=== PATIENT | female | born 1965 | race Asian ===

== ENCOUNTER → 2016-12-31 | Outpatient (CLI) | payer OTHER ==
[~2016-12-31] MED LIST: ASPI-496 PO; CARV6.252 PO; ENAL2.5T PO; INSU100I11 SC; INSU100V8 SQ; SIMV20TA3 PO
[2016-12-31 08:30] LABS: ASPARTATE AMINO TRANSFERASE 23 U/L (15-37); BLOOD UREA NITROGEN 18 mg/dL (7-18)
== END | disposition home or self-care (01) ==
LOC: LAB 07:12
PROVIDERS: ATTEND Family Medicine
DX: E11.9 Type 2 diabetes mellitus without complications (principal); E78.2 Mixed hyperlipidemia
CPT/HCPCS: 36415; 80053; 80061; 82043; 83036

== ENCOUNTER → 2017-01-29 | Outpatient (CLI) | payer OTHER | END | disposition home or self-care (01) | LOC: CFH 12:37 | PROVIDERS: ATTEND Family Medicine | DX: K57.90 Diverticulosis of intestine, part unspecified, without perforation or abscess without bleeding (principal); Z90.710 Acquired absence of both cervix and uterus | CPT/HCPCS: 74177; 82565 ==

== ENCOUNTER → 2017-02-03 | Outpatient (CLI) | payer OTHER | END | disposition home or self-care (01) | LOC: RAD 10:40 | PROVIDERS: ATTEND Family Medicine | DX: R05 Cough (principal) | CPT/HCPCS: 71020 ==

== ENCOUNTER → 2018-05-17 | Outpatient (CLI) | payer OTHER | END | disposition home or self-care (01) | LOC: RAD 09:26 | PROVIDERS: ATTEND Internal Medicine Hematology & Oncology | DX: R76.12 Nonspecific reaction to cell mediated immunity measurement of gamma interferon antigen response without active tuberculosis (principal) ==

== ENCOUNTER → 2018-07-02 | Outpatient (CLI) | payer OTHER ==
[2018-07-02 08:25] LABS: ALANINE AMINOTRANSFERASE 27 U/L (12-78); ALBUMIN 3.4 g/dL (3.4-5.0); ANION GAP 12 mmol/L (5-15); CALCIUM 8.8 mg/dL (8.5-10.1); CHLORIDE 105 mmol/L (98-107); CHOLESTEROL, TOTAL 238 mg/dL (140-239)
[2018-07-02 08:28] LABS: ALKALINE PHOSPHATASE 119 U/L (45-117); CHOL/HDL RATIO 4.7; HDL CHOL % 21 % (28-40); HDL CHOLESTEROL (DIRECT) 51 mg/dL (40-60); LDL CHOLESTEROL,CALCULATED 155 mg/dL (54-169); TOTAL PROTEIN 7.5 g/dL (6.4-8.2); TRIGLYCERIDES 162 mg/dL (50-200); VLDL CHOLESTEROL 32 mg/dL (0-25)
[2018-07-02 08:29] LABS: HEMOGLOBIN A1C 13.5 % (4.2-6.3)
== END | disposition home or self-care (01) ==
LOC: LAB 07:44
PROVIDERS: ATTEND Family Medicine
DX: E10.9 Type 1 diabetes mellitus without complications (principal); E78.2 Mixed hyperlipidemia
CPT/HCPCS: 36415; 80053; 80061; 82043; 83036

== ENCOUNTER 2019-07-16 22:03 | Emergency (ER) | payer OTHER ==
[~2019-07-16] VITALS: Ht 157.5 cm; Wt 75.8 kg
[2019-07-16 22:05] VITALS: BP 165/90
[2019-07-16] MEDS ORDERED: AMOXICILLIN 500 MG CAPSULE PO STA (22:34)
[2019-07-16] MEDS ORDERED: AMOXICILLIN 500 MG CAPSULE ONE (22:42)
== END 2019-07-16 23:09 | disposition home or self-care (01) ==
LOC: ED 23:03
DX: K08.89 Other specified disorders of teeth and supporting structures (principal); E11.65 Type 2 diabetes mellitus with hyperglycemia
CPT/HCPCS: 99283

== ENCOUNTER → 2019-07-25 | Outpatient (CLI) | payer OTHER ==
[2019-07-25 10:26] LABS: ALBUMIN 4.4 g/dL (3.4-5.0); ANION GAP 9 mmol/L (5-15); CALCIUM 9.7 mg/dL (8.5-10.1); CHLORIDE 98 mmol/L (98-107)
[2019-07-25 10:30] LABS: ALANINE AMINOTRANSFERASE 42 U/L (12-78); ALKALINE PHOSPHATASE 149 U/L (45-117); BILIRUBIN,TOTAL 1.1 mg/dL (0.2-1.0); CHOL/HDL RATIO 4.7; CHOLESTEROL, TOTAL 284 mg/dL (140-239); CREATININE 1.04 mg/dL (0.55-1.02); HDL CHOL % 21 % (28-40); HDL CHOLESTEROL (DIRECT) 60 mg/dL (40-60); LDL CHOLESTEROL,CALCULATED 179 mg/dL (54-169); TOTAL PROTEIN 9.7 g/dL (6.4-8.2); TRIGLYCERIDES 224 mg/dL (50-200); VLDL CHOLESTEROL 45 mg/dL (0-25)
[2019-07-25 12:02] LABS: HEMOGLOBIN A1C 12.5 % (4.2-6.3)
== END | disposition home or self-care (01) ==
LOC: LAB 09:55
PROVIDERS: ATTEND Family Medicine
DX: E10.9 Type 1 diabetes mellitus without complications (principal); E78.2 Mixed hyperlipidemia
CPT/HCPCS: 36415; 80053; 80061; 82043; 83036

== ENCOUNTER → 2020-01-17 | Outpatient (CLI) | payer OTHER ==
[~2020-01-17] MED LIST changes: +SIMV20TA19 PO; -SIMV20TA3 PO
[2020-01-17 08:41] LABS: ALANINE AMINOTRANSFERASE 35 U/L (12-78); ALBUMIN 3.9 g/dL (3.4-5.0); ANION GAP 9 mmol/L (5-15); CALCIUM 9.4 mg/dL (8.5-10.1); CHLORIDE 102 mmol/L (98-107); CREATININE 0.88 mg/dL (0.55-1.02)
[2020-01-17 08:43] LABS: ALKALINE PHOSPHATASE 122 U/L (45-117); TOTAL PROTEIN 8.2 g/dL (6.4-8.2)
== END | disposition home or self-care (01) ==
LOC: LAB 08:02
PROVIDERS: ATTEND Family Medicine
DX: E10.9 Type 1 diabetes mellitus without complications (principal)
CPT/HCPCS: 36415; 80053; 82043; 83036

== ENCOUNTER 2021-01-03 12:03 | Emergency (ER) | payer OTHER ==
[~2021-01-03] VITALS: Ht 154.9 cm; Wt 65.0 kg
[~2021-01-03 12:03] MED LIST changes: -ENAL2.5T PO; +ENAL2.5T8 PO
[2021-01-03 12:43] VITALS: BP 133/88
--- NOTE | 2021-01-03 12:43 | NUR ---
MECHANICAL SYSTEM TECHNICIAN: PT AMBULATORY TO ROOM FROM LOBBY WITH STEADY GAIT AT THIS TIME WITH PRIMARY RN HARMONY
--- NOTE | 2021-01-03 12:45 | NUR ---
Pt arrived with complaints of a "boil" between her butt and vagina. Pt A&O x4, VSS, connected to BP and O2 monitors. Pt states that she is also a diabetic but is "hardheadded" and isn't always compliant with her meds. RAYRAY
--- NOTE | 2021-01-03 13:14 | NUR ---
BREAK RN: THIS RN AT BEDSIDE DURING PERINEAL EXAM.
[2021-01-03] MEDS ORDERED: LIDOCAINE-MPF 1%, 5ML ONE (13:17)
--- NOTE | 2021-01-03 13:27 | NUR ---
BREAK RN: [place] PULLED FOR ERP ADMIN. I&D SET UP PER ERP REQUEST.
--- NOTE | 2021-01-03 14:17 | NUR ---
REPORT GIVEN TO SOLANGE MOON RN.
== END 2021-01-03 14:27 | disposition home or self-care (01) ==
LOC: ED 14:00
DX: L02.215 Cutaneous abscess of perineum (principal); L02.31 Cutaneous abscess of buttock; I10 Essential (primary) hypertension; E11.9 Type 2 diabetes mellitus without complications
CPT/HCPCS: 46050; 99284

== ENCOUNTER 2021-03-11 08:01 | Emergency (ER) | payer OTHER ==
[~2021-03-11] VITALS: Ht 154.9 cm; Wt 62.8 kg
--- NOTE | 2021-03-11 08:48 | NUR ---
AMBULATED FROM LOBBY TO ROOM
--- NOTE | 2021-03-11 08:57 | NUR ---
PT C/O RUQ PAIN THAT RADIATES TO THE BACK WITH MODERATE PAIN SINCE 0600 THIS AM. PT HAS HAD PAIN SINCE LAST WEEK WEDNESDAY. THE PAIN WOULD COME WHEN EATING THEN IT WOULD GO AWAY. NOW PAIN IS CONSTANT. MIDDLE BACK PAIN HAS BEEN THERE FOR 3 WEEKS & MILD PAIN.
--- NOTE | 2021-03-11 09:06 | NUR ---
PROVIDER AT BEDSIDE TO DO EVALUATION.
[2021-03-11 09:07] LABS: MICROSCOPIC NOT IND
[2021-03-11] MEDS ORDERED: MORPHINE SULFATE 4 MG/ML, 1ML IVPush PRN (09:30)
[2021-03-11] MEDS ORDERED: MORPHINE SULFATE 4 MG/ML, 1ML ONE (09:33)
[2021-03-11] MEDS ORDERED: ONDANSETRON 2MG/ML, 2ML ONE (09:33)
--- NOTE | 2021-03-11 09:36 | NUR ---
ULTRASOUND AT BEDSIDE PT MEDICATED FOR PAIN AND FLUIDS STARTED. VSS.
[2021-03-11 09:44] LABS: BASOPHILS % (AUTO) 1 % (0-1); EOSINOPHILS % (AUTO) 2 % (1-7); LYMPHOCYTES % (AUTO) 34 % (22-44); MEAN CORPUSCULAR HEMOGLOBIN 30.2 pg (27.0-34.8); MEAN CORPUSCULAR HGB CONC 34.6 g/dL (32.4-35.8); MEAN PLATELET VOLUME 7.3 fL (7.4-10.4); MONOCYTES % (AUTO) 5 % (2-9); NEUTROPHILS % (AUTO) 59 % (42-75); PLATELET COUNT 267 x10^3/uL (130-400); RED BLOOD COUNT 4.77 x10^6/uL (3.82-5.3)
[2021-03-11 09:58] LABS: ALANINE AMINOTRANSFERASE 42 U/L (12-78); ALBUMIN 3.3 g/dL (3.4-5.0); ANION GAP 7 mmol/L (5-15); CALCIUM 8.6 mg/dL (8.5-10.1); CHLORIDE 108 mmol/L (98-107); CREATININE 0.71 mg/dL (0.55-1.02)
[2021-03-11 10:00] LABS: ALKALINE PHOSPHATASE 101 U/L (45-117); BILIRUBIN,TOTAL 0.9 mg/dL (0.2-1.0); TOTAL PROTEIN 7.4 g/dL (6.4-8.2)
[2021-03-11] MEDS ORDERED: ONDANSETRON 2MG/ML, 2ML IVPush ONE (10:00)
[2021-03-11] MEDS ORDERED: SODIUM CHLORIDE 0.9% 1,000ML IVBOLUS ONE (10:00)
--- NOTE | 2021-03-11 10:23 | NUR ---
PT RESPONDED WELL TO PAIN MEDICATION PAIN IS DOWN SIGNIFICATNLY. VSS, BED RAILS UPX2 CALL REMOTE WITHIN REACH
[2021-03-11 11:14] VITALS: BP 145/78
--- NOTE | 2021-03-11 11:16 | NUR ---
PT STATES NO PAIN AND JUST HEAVY RIGHT NOW PROVIDER AT BEDSIDE TO DISCUSS DISCHARGE PLAN.
--- NOTE | 2021-03-11 11:44 | NUR ---
Patient/Caregiver given discharge instructions and they have confirmed that they understand the instructions. Patient ambulatory with steady gait.
== END 2021-03-11 11:45 | disposition home or self-care (01) ==
LOC: ED 08:13
DX: K29.00 Acute gastritis without bleeding (principal); I10 Essential (primary) hypertension; Z90.710 Acquired absence of both cervix and uterus
CPT/HCPCS: 36415; 71045; 76700; 80053; 81003; 83690; 85025; 96361; 96374; 96375; 99285; J2270; J2405; J7030

== ENCOUNTER → 2021-04-04 | Outpatient (CLI) | payer OTHER ==
[~2021-04-04] MED LIST changes: +SINCALIDE (KINEVAC) 5 MCG ONE
== END | disposition home or self-care (01) ==
LOC: RAD 10:12
PROVIDERS: ATTEND Family Medicine
DX: R10.11 Right upper quadrant pain (principal)
CPT/HCPCS: 78227; A9537; J2805

== ENCOUNTER 2021-04-08 14:02 | Emergency (ER) | payer OTHER ==
[~2021-04-08] VITALS: Ht 154.9 cm; Wt 64.0 kg
[~2021-04-08 14:02] MED LIST changes: -SINCALIDE (KINEVAC) 5 MCG ONE
--- NOTE | 2021-04-08 14:42 | NUR ---
PATIENT TO ROOM FROM LOBBY.
[2021-04-08] MEDS ORDERED: MORPHINE SULFATE 4 MG/ML, 1ML ONE (15:23)
[2021-04-08] MEDS ORDERED: ONDANSETRON 2MG/ML, 2ML ONE (15:23)
[2021-04-08] MEDS ORDERED: ONDANSETRON 2MG/ML, 2ML IVPush ONE (15:30)
[2021-04-08] MEDS ORDERED: SODIUM CHLORIDE FLUSH 10ML SYR IVF ONE (15:30)
[2021-04-08] MEDS ORDERED: MORPHINE SULFATE 4 MG/ML, 1ML IVPush PRN (15:30)
[2021-04-08 15:41] LABS: BASOPHILS % (AUTO) 0 % (0-1); EOSINOPHILS % (AUTO) 1 % (1-7); LYMPHOCYTES % (AUTO) 42 % (22-44); MEAN CORPUSCULAR HEMOGLOBIN 30.3 pg (27.0-34.8); MEAN CORPUSCULAR HGB CONC 34.7 g/dL (32.4-35.8); MEAN PLATELET VOLUME 6.8 fL (7.4-10.4); MONOCYTES % (AUTO) 6 % (2-9); NEUTROPHILS % (AUTO) 50 % (42-75); PLATELET COUNT 293 x10^3/uL (130-400); RED BLOOD COUNT 4.71 x10^6/uL (3.82-5.3); RED CELL DISTRIBUTION WIDTH 12.9 % (9.6-15.2)
[2021-04-08 15:54] LABS: ALANINE AMINOTRANSFERASE 45 U/L (12-78); ALBUMIN 3.4 g/dL (3.4-5.0); ANION GAP 4 mmol/L (5-15); CALCIUM 9.3 mg/dL (8.5-10.1); CHLORIDE 109 mmol/L (98-107); CREATININE 0.65 mg/dL (0.55-1.02)
[2021-04-08 15:55] LABS: ALKALINE PHOSPHATASE 104 U/L (45-117); BILIRUBIN,TOTAL 1.2 mg/dL (0.2-1.0); TOTAL PROTEIN 7.5 g/dL (6.4-8.2)
--- NOTE | 2021-04-08 15:56 | NUR ---
PT MEDICATED FOR PAIN PER ORDERS. PT REMAINS ON MONITORS, VSS. AT BEDSIDE. AWAITING ALL LAB RESULTS. CONT TO MONITOR.
[2021-04-08] MEDS ORDERED: LORazepam 1MG TABLET PO ONE (16:00)
--- NOTE | 2021-04-08 17:00 | NUR ---
PT RESTING IN BED, NO DISTRESS. PT STATES PAIN DECREASED, PAIN MEDICATIONS EFFECTIVE. VSS. CONT TO MONITOR.
--- NOTE | 2021-04-08 18:30 | NUR ---
PT D/C'D PER ERMD ORDERS, PT STATES PAIN STILL WELL CONTROLLED. PT VERBALIZED UNDERSTANDING OF D/C ORDERS. PT HAS STEADY GAIT UPON D/C.
[2021-04-08 19:07] VITALS: BP 142/87
== END 2021-04-08 19:09 | disposition home or self-care (01) ==
LOC: ED 14:48
DX: K80.50 Calculus of bile duct without cholangitis or cholecystitis without obstruction (principal); I10 Essential (primary) hypertension; E11.65 Type 2 diabetes mellitus with hyperglycemia; E78.5 Hyperlipidemia, unspecified; Z90.710 Acquired absence of both cervix and uterus
CPT/HCPCS: 36415; 80053; 83690; 85025; 96374; 96375; 99285; J2270; J2405

== ENCOUNTER 2021-04-20 06:48 | Day surgery (SDC) | payer OTHER ==
[2021-04-18 12:07] LABS: ALANINE AMINOTRANSFERASE 35 U/L (12-78); ALBUMIN 3.6 g/dL (3.4-5.0); ANION GAP 8 mmol/L (5-15); CALCIUM 9.1 mg/dL (8.5-10.1); CHLORIDE 105 mmol/L (98-107); CREATININE 0.72 mg/dL (0.55-1.02)
[2021-04-18 12:09] LABS: ALKALINE PHOSPHATASE 97 U/L (45-117); BILIRUBIN,TOTAL 0.8 mg/dL (0.2-1.0); TOTAL PROTEIN 7.7 g/dL (6.4-8.2)
[~2021-04-20] VITALS: Ht 154.9 cm; Wt 62.3 kg
[~2021-04-20 06:48] MED LIST changes: +DULA1.5P SC; +ENAL5TAB10 PO; +GLIM2TAB7 PO; +OMEP40CA8 PO; +OXYC1TAB14 PO
[2021-04-20 07:09] VITALS: BP 122/75
[2021-04-20] MEDS ORDERED: EPINEPHRINE 1 MG/ML, 1ML ONE (07:14)
[2021-04-20] MEDS ORDERED: BUPIVACAINE/PF 0.5% ONE (07:14)
[2021-04-20] MEDS ORDERED: MIDAZOLAM 1 MG/ML, 2ML ONE (08:05)
[2021-04-20] MEDS ORDERED: FENTANYL PF 100 MCG/2ML ONE ×2 (08:05→10:22)
[2021-04-20] MEDS ORDERED: PROMETHAZINE 25 MG/ML, 1ML IVPush PRN (08:30)
[2021-04-20] MEDS ORDERED: HYDROcodone/APAP 7.5-325MG/15ML UDC PO PRN (08:30)
[2021-04-20] MEDS ORDERED: OXYcodone 5 MG/5 ML ORAL.SOL UDC PO PRN (08:30)
[2021-04-20] MEDS ORDERED: ONDANSETRON 2MG/ML, 2ML IVPush PRN (08:30)
[2021-04-20] MEDS ORDERED: MEPERIDINE/PF 25MG/0.5ML IVPush PRN (08:30)
[2021-04-20] MEDS ORDERED: HYDROmorphone 1 MG/ML, 1ML INJ IVPush PRN (08:30)
[2021-04-20] MEDS ORDERED: LIDOCAINE 1%, 20ML ONE (09:13)
[2021-04-20] MEDS ORDERED: DEXAMETHASONE 4 MG/ML, 1ML ONE (09:13)
[2021-04-20] MEDS ORDERED: BUPIVACAINE/PF-EPI 0.5% 1:200K IM ONE (09:42)
[2021-04-20] MEDS ORDERED: NEOSTIGMINE 1 MG/ML, 10ML ONE (10:02)
[2021-04-20] MEDS ORDERED: ROCURONIUM 10MG/ML,5ML ONE (10:02)
[2021-04-20] MEDS ORDERED: CEFAZOLIN 1,000 MG ONE (10:02)
[2021-04-20] MEDS ORDERED: PROPOFOL 10 MG/ML, 20ML ONE (10:02)
[2021-04-20] MEDS ORDERED: ONDANSETRON 2MG/ML, 2ML ONE (10:02)
[2021-04-20] MEDS ORDERED: GLYCOPYRROLATE 0.2MG/1ML, 5ML ONE (10:02)
[2021-04-20] MEDS ORDERED: SUCCINYLCHOLINE 20 MG/ML, 10ML ONE (10:02)
[2021-04-20] MEDS ORDERED: ACETAMINOPHEN 650 MG/20.3 ML UDC ONE (10:22)
[2021-04-20] MEDS ORDERED: OXYcodone 5 MG/5 ML ORAL.SOL UDC ONE (10:22)
[2021-04-20] MEDS: FENTANYL PF 100 MCG/2ML IV PRN ×2 (10:25→10:40)
[2021-04-20] MEDS ORDERED: OXYC-302 PO (10:31)
[2021-04-20] MEDS ORDERED: ONDA4TAB7 PO (10:36)
[2021-04-20] MEDS ORDERED: OXYC1TAB14 PO (10:38)
[2021-04-20] MEDS ORDERED: ACETAMINOPHEN 325 MG TABLET PO PRN (11:00)
== END 2021-04-20 11:50 | disposition home or self-care (01) ==
LOC: OR 06:48 → 4NE 06:51 → OR 11:50
PROVIDERS: ATTEND Surgery
DX: K81.1 Chronic cholecystitis (principal); K82.8 Other specified diseases of gallbladder; I10 Essential (primary) hypertension; E11.9 Type 2 diabetes mellitus without complications; Z79.899 Other long term (current) drug therapy
CPT/HCPCS: 36415; 47562; 80053; 82962; 83036; 88304; 93005; J0171; J0330; J0690; J1100; J2250; J2405; J2704; J2710; J3010; G0378